=== PATIENT | female | born 1970 ===

== ENCOUNTER 2019-02-23 11:00 | Outpatient (CLI) | payer OTHER | END 2019-02-23 11:01 | disposition home or self-care (01) | LOC: SLR 11:00 | PROVIDERS: ATTEND Otolaryngology | DX: G47.33 Obstructive sleep apnea (adult) (pediatric) (principal) | CPT/HCPCS: G0399 ==

== ENCOUNTER 2019-03-01 11:00 | Outpatient (CLI) | payer OTHER | END 2019-03-01 11:01 | disposition home or self-care (01) | LOC: SLR 11:00 | PROVIDERS: ATTEND Otolaryngology | DX: G47.33 Obstructive sleep apnea (adult) (pediatric) (principal) | CPT/HCPCS: 95811 ==